=== PATIENT | male | born 1955 | race Caucasian/White ===

== ENCOUNTER 2023-10-11 15:51 | Emergency (ER) | payer OTHER ==
[~2023-10-11] VITALS: Ht 180.3 cm; Wt 74.4 kg
[2023-10-11] MEDS ORDERED: CLIN150 PO (16:33)
[2023-10-11] MEDS ORDERED: TRAM50 PO (16:33)
[2023-10-11 16:37] VITALS: BP 114/71
== END 2023-10-11 16:54 | disposition home or self-care (01) ==
LOC: ER 15:51
DX: L03.116 Cellulitis of left lower limb (principal); I89.0 Lymphedema, not elsewhere classified; F17.200 Nicotine dependence, unspecified, uncomplicated; Z86.14 Personal history of Methicillin resistant Staphylococcus aureus infection
CPT/HCPCS: A9270

== ENCOUNTER 2023-10-16 19:17 | Emergency (ER) | payer OTHER ==
[~2023-10-16] VITALS: Ht 180.3 cm; Wt 74.4 kg
[~2023-10-16 19:17] MED LIST: CLIN150 PO; TRAM50 PO
[2023-10-16 19:40] VITALS: BP 105/79
== END 2023-10-16 22:04 | disposition home or self-care (01) ==
LOC: ER 19:17
DX: S81.002A Unspecified open wound, left knee, initial encounter (principal); R60.0 Localized edema; W22.8XXA Striking against or struck by other objects, initial encounter
CPT/HCPCS: 93971; 99283-25; A9270